=== PATIENT | female | born 1955 | race Caucasian/White ===

== ENCOUNTER 2020-10-23 07:09 | Observation (INO) ==
--- NOTE | 2020-09-24 08:48 | PAT Medication Instructions ---
Medication Instructions Date of Service September 24, 2020 Home Medications Klor Tabs 4 mg PO UD aspirin 81 mg PO 4XWK citalopram 10 mg PO QAM jmezipqu-bynvc-hawvl-CF borate [[employer]] 1 tab PO QAM lisinopril-hydrochlorothiazide 1 tab PO QAM nbqsbnfy-ays-eume-FA-lutein [[employer]] 1 tab PO QAM omeprazole 40 mg PO QAM tramadol 50 mg PO QAM Continue as directed aspirin 81 mg PO 4XWK (unless surgeon directs otherwise) STOP taking 2 weeks before surgery bkfqmywf-lakid-esbzt-CF borate [[employer]] 1 tab PO QAM DO NOT take the morning of surgery Klor Tabs 4 mg PO UD lisinopril-hydrochlorothiazide 1 tab PO QAM oinwpnnm-cnp-htpx-FA-lutein [[employer]] 1 tab PO QAM Take morning of surgery With a small sip of water, OTHERWISE NOTHING TO EAT OR DRINK AFTER MIDNIGHT: tramadol 50 mg PO QAM (okay to take up to 4 hours prior to surgery if needed) omeprazole 40 mg PO QAM citalopram 10 mg PO QAM Other Notes If you have any questions please call us at [phone] or [phone] or [phone] or [phone]
--- NOTE | 2020-09-25 08:56 | Anesthesiology Consultation ---
Date of Service September 25, 2020 Assessment & Plan (1) Encounter for pre-operative examination: - Awaiting review of preop testing(labs, EKG, CXR). - COVID screening: Per assessment on ____: Travel screen ___, no known COVID-19 positive contacts or current COVID-19 related symptoms. Surgeon arranging preop COVID testing. Awaiting results. Chart Review Chart Review: Patient seen in Pre Admission Testing Teaching & Discussion Pre-Anesthesia Teaching/Discussion Notes: Instructed NPO after midnight before surgery,except medications with 15 cc of water. Medication instructions provided according to the PAT guidelines. History Surgery Operation Date: 10/23/20 07:15 Proposed Procedures p Right Total Knee Arthroplasty - Jr Leonard DO Height/Weight Height: 5 ft 2 in Weight: 82.554 kg Allergies Allergy/AdvReac Type Severity Reaction Status Date / Time amoxicillin AdvReac Mild SEVERE Verified 09/24/20 08:18 N/V/D clavulanic acid AdvReac Mild SEVERE Verified 09/24/20 08:18 N/V/D Medications Home Medications Medication Instructions Recorded Confirmed Last Taken Klor Tabs 4 mg PO UD 09/24/20 09/24/20 Unknown aspirin 81 mg PO 4XWK 09/24/20 09/24/20 Unknown citalopram 10 mg PO QAM 09/24/20 09/24/20 Unknown riuyaaln-twarm-jozhv-CF borate 1 tab PO QAM 09/24/20 09/24/20 Unknown [[employer]] lisinopril-hydrochlorothiazide 1 tab PO QAM 09/24/20 09/24/20 Unknown cpaobitw-nch-lidg-FA-lutein 1 tab PO QAM 09/24/20 09/24/20 Unknown [[employer]] omeprazole 40 mg PO QAM 09/24/20 09/24/20 Unknown tramadol 50 mg PO QAM 09/24/20 09/24/20 Unknown Past Medical History Medical History Anxiety and depression GERD (gastroesophageal reflux disease) History of anemia History of colon cancer SURGERY ONLY History of diverticulitis History of kidney stones Hypertension Osteoarthritis Past Family History Family History Son Family history of diabetes mellitus Past Surgical History Surgical History Family history of reaction to anesthesia MOTHER AND SISTER>NAUSEA History of ankle surgery RT ANKLE RECONSTRUCTION History of arthroscopy RT KNEE History of bladder surgery "HOLE REPAIRED" R/T COLON RESECTION History of cardiac cath 2015/NO STENTS (FAILED STRESS TEST) History of section X 1 History of colon resection X 2 (1ST FOR CANCER AND 2ND R/T DIVERTICULITIS) History of colonoscopy History of dilatation and curettage History of esophagogastroduodenoscopy (EGD) History of herniorrhaphy UMBILICAL History of lithotripsy History of tonsillectomy and adenoidectomy Nausea and vomiting after administration of anesthetic agent Social History Smoking Status: Never smoker Hx Alcohol Use: Yes Alcohol type: beer, wine and hard liquor alcohol intake frequency: a few times a month substance use type: does not use Review of Systems Patient denies chest pain, shortness of breath, dyspnea on exertion, fever, chills, cough, wheezing, palpitations. Physical Exam Vital Signs VITALS BP P TEMP SP02 RESP PHYSICAL Full cervical extension range of motion. Full TMJ range of motion. TMD __ finger breaths Mallampati Score ___ Dentition: intact Lungs: clear throughout to auscultation Cardiac: regular rate and rhythm, no murmurs noted Spine: normal Carotid arteries: negative bruit Extremities: no edema
--- NOTE | 2020-09-25 09:44 | Anesthesiology Consultation ---
Date of Service September 25, 2020 Assessment & Plan (1) Encounter for pre-operative examination: COVID Status: As of 09/25 assessment, patient denies travel to endemic area, known exposure/sick contacts, or symptoms of COVID19. Patient advised to adhere to social distancing guidelines, wear a mask in public and avoid large crowds or unnecessary travel in the 2 weeks leading up to surgery. Preoperative COVID19 testing to be completed prior to surgery per surgeon's arrangements. [facility] ient encouraged to be extra cautious/conscientious with COVID precautions between COVID testing and surgery. Patient had abnormal EKG showing inferior infarct. Subsequently received EKG she had done 04/08/20, which was done pre-op prior to her hemicolectomy. Patient was seen for cardiology clearance in [place] prior to hemicolectomy per her report due to the PVCs on this EKG. She was cleared for surgery, and surgical course was (per her report) uneventful. Comparing EKG from 09/25 done in [facility], inferior leads appear very similar. Patient denies any exertional CP or SMITH. Heart cath 2012 essentially normal. Will obtain cardiology note from 04/2020 for clarity. Patient is also seeing PCP prior to surgery. Chart Review Chart Review: Acceptable Risk for Surgery (pending pcp clearance 10/09) and Patient seen in Pre Admission Testing Teaching & Discussion Instructed NPO after midnight before surgery, except medications with 15 cc of water. Medication instructions provided according to the [facility] guidelines. History Surgery Operation Date: 10/23/20 07:15 Proposed Procedures p Right Total Knee Arthroplasty - Jr Leonard DO Height/Weight Height: 5 ft 2 in Weight: 83.9 kg Allergies Allergy/AdvReac Type Severity Reaction Status Date / Time amoxicillin AdvReac Mild SEVERE Verified 09/24/20 08:18 N/V/D clavulanic acid AdvReac Mild SEVERE Verified 09/24/20 08:18 N/V/D Medications Home Medications Medication Instructions Recorded Confirmed Last Taken Klor Tabs 4 mg PO UD 09/24/20 09/24/20 Unknown aspirin 81 mg PO 4XWK 09/24/20 09/24/20 Unknown citalopram 10 mg PO QAM 09/24/20 09/24/20 Unknown xxqdsciv-ssigz-gcwly-CF borate 1 tab PO QAM 09/24/20 09/24/20 Unknown [[facility] [facility]] lisinopril-hydrochlorothiazide 1 tab PO QAM 09/24/20 09/24/20 Unknown omegbwsm-ltb-hdll-FA-lutein 1 tab PO QAM 09/24/20 09/24/20 Unknown [[employer]] omeprazole 40 mg PO QAM 09/24/20 09/24/20 Unknown tramadol 50 mg PO QAM 09/24/20 09/24/20 Unknown Past Medical History Medical History Anxiety and depression GERD (gastroesophageal reflux disease) History of anemia History of colon cancer SURGERY ONLY History of diverticulitis History of kidney stones Hypertension Osteoarthritis Exercise / Class Metabolic Activity II 4-5 Yardwork/Stairs/Walk up hill Past Family History Family History Son Family history of diabetes mellitus Past Surgical History Surgical History Family history of reaction to anesthesia MOTHER AND SISTER>NAUSEA History of ankle surgery RT ANKLE RECONSTRUCTION History of arthroscopy RT KNEE History of bladder surgery "HOLE REPAIRED" R/T COLON RESECTION History of cardiac cath 2011 for abnormal stress test. Angiographically normal coronaries, no intervention, false + stress test (report scanned into historical documents in [email or web address]). History of section X 1 History of colon resection X 2 (1ST FOR CANCER AND 2ND R/T DIVERTICULITIS) History of colonoscopy History of dilatation and curettage History of esophagogastroduodenoscopy (EGD) History of herniorrhaphy UMBILICAL History of lithotripsy History of tonsillectomy and adenoidectomy Nausea and vomiting after administration of anesthetic agent Past Anesthesia History No Hx of Anesthesia Complications and No Family Hx of Anesthesia Complications (other than nausea, slow to wake) History of PONV No Hx of Motion Sickness and History of PONV (severe) Social History Smoking Status: Never smoker Do You Dip or Chew Tobacco: No Hx Alcohol Use: Yes Alcohol type: beer, wine and hard liquor alcohol intake frequency: a few times a month substance use type: does not use Review of Systems Pt denies any recent chest pain, shortness of breath, palpitations, cough, fever, URI, or uncontrolled acid reflux. Physical Exam Vital Signs BP: 128/78 P: 76bpm SPO2: 97% RA T: 98.7 F R: 16 ENMT Mouth: + dental restorations (crown lower R molar) and + chipped teeth (cracked upper R molar); no loose teeth Thyromental Distance: > or= 3.5 Finger Breadths Mallampati Class: II Neck normal visual inspection; neck extension not limited Respiratory normal respiratory effort, lungs clear to auscultation Cardiovascular RRR, no murmur, no edema Musculoskeletal Significant valgus deformity of RLE. Lab Results Anesthesia Preop Results Results Anesthesia Widget: WBC 9.70 K/uL (4.8-10.8) 09/25/20 Hgb 14.6 g/dL (12.0-16.0) 09/25/20 Hct 42.8 % (37-47) 09/25/20 Plt 150 K/uL (130-400) 09/25/20 Na 140 mmol/L (136-145) 09/25/20 K 3.8 mmol/L (3.5-5.1) 09/25/20 Cl 106 mmol/L (98-107) 09/25/20 CO2 30 mmol/L (21-32) 09/25/20 BUN 19 mg/dl (7-18) H 09/25/20 Creat 0.59 mg/dl (0.6-1.2) L 09/25/20 Glucose Level 107 mg/dl (70-99) H 09/25/20 PT 10.1 Seconds (9.0-12.0) 09/25/20 PTT 24.2 Seconds (21.0-31.0) 09/25/20 INR 1.0 (0.9-1.1) 09/25/20 HA1c 5.5 % (4.5-5.6) 09/25/20 Urine Color Dark Yellow 09/25/20 Urine Appearance Clear (Clear) 09/25/20 Urine pH 8.0 (4.5-7.5) H 09/25/20 Urine Specific [place] 1.023 (1.000-1.030) 09/25/20 Urine Protein Negative (Negative) 09/25/20 Urine Glucose (UA) Negative (Negative) 09/25/20 Urine Ketones Negative (Negative) 09/25/20 Urine Blood Negative (Negative) 09/25/20 Urine Nitrite Negative (Negative) 09/25/20 Urine Bilirubin Negative (Negative) 09/25/20 Urine Urobilinogen Negative (Negative) 09/25/20 Urine Leukocyte Esterase Negative (Negative) 09/25/20 Blood Type B Negative 09/25/20 Antibody Screen NEGATIVE 09/25/20 Testing Electrocardiogram Date: 09/25/20 Findings: + NSR @ (73bpm) Left axis deviation. No change from 2014. Chest X-Ray Date: 09/25/20 IMPRESSION: 1. No evidence of acute parenchymal consolidation 2. Mild mediastinal prominence likely secondary to aortic tortuosity/ectasia
--- NOTE | 2020-10-21 16:53 | History & Physical Report ---
Date of Service October 21, 2020 Assessment & Plan (1) Osteoarthritis of right knee: Plan: Schedule a right total knee arthroplasty for 10/23/20. All potential risks, benefits, complications, alternatives, and rehab have been discussed with the patient and she wishes to proceed. Plan for aspirin 81 mg twice daily x30 days postop for DVT prophylaxis. History of Present Illness Chief Complaint: Right knee pain Primary Care Provider: John Ramos MD This is a patient with a multiyear history of right knee pain that was treated conservatively for osteoarthritis. She is failed all conservative management for right knee osteoarthritis. She is currently being set up for total knee arthroplasty for the right knee. Allergies Allergy/AdvReac Type Severity Reaction Status Date / Time amoxicillin AdvReac Mild SEVERE Verified 09/24/20 08:18 N/V/D clavulanic acid AdvReac Mild SEVERE Verified 09/24/20 08:18 N/V/D Home Medications Medication Instructions Recorded Confirmed Type Klor Tabs 4 mg PO UD 09/24/20 09/24/20 History aspirin 81 mg tablet 81 mg PO 4XWK 09/24/20 09/24/20 History citalopram 10 mg tablet 10 mg PO QAM 09/24/20 09/24/20 History glucosam 750 mg-chondroi 100 1 tab PO QAM 09/24/20 09/24/20 History mg-hyalur 1.65 mg-CF borate 108 mg tablet ([facility]) lisinopril 20 1 tab PO QAM 09/24/20 09/24/20 History mg-hydrochlorothiazide 25 mg tablet multivit with 1 tab PO QAM 09/24/20 09/24/20 History umnoptil-fduw-XZ-lutein 8 mg iron-400 mcg-[facility]cg [facility] omeprazole 40 mg capsule,delayed 40 mg PO QAM 09/24/20 09/24/20 History release tramadol 50 mg tablet 50 mg PO QAM 09/24/20 09/24/20 History Past Med/Surg History Medical History Anxiety and depression GERD (gastroesophageal reflux disease) History of anemia History of colon cancer SURGERY ONLY History of diverticulitis History of kidney stones Hypertension Osteoarthritis Surgical History Family history of reaction to anesthesia MOTHER AND SISTER>NAUSEA History of ankle surgery RT ANKLE RECONSTRUCTION History of arthroscopy RT KNEE History of bladder surgery "HOLE REPAIRED" R/T COLON RESECTION History of cardiac cath 2011 for abnormal stress test. Angiographically normal coronaries, no intervention, false + stress test (report scanned into historical documents in [employer]). History of section X 1 History of colon resection X 2 (1ST FOR CANCER AND 2ND R/T DIVERTICULITIS) History of colonoscopy History of dilatation and curettage History of esophagogastroduodenoscopy (EGD) History of herniorrhaphy UMBILICAL History of lithotripsy History of tonsillectomy and adenoidectomy Nausea and vomiting after administration of anesthetic agent Family History Son Family history of diabetes mellitus Social History Smoking Status: Never smoker Second Hand Exposure: Yes ( A CHILD); Hx Alcohol Use: Yes Alcohol type: beer, wine and hard liquor Preferred Language: Sami Property Management Specialist Required: No Beliefs That Will Affect Care: None Current Living Situation: Alone Feels Safe at Home: Yes Assistive Devices: Glasses Physical Exam Constitutional: well developed and well nourished; no acute distress ENMT: external ear and nose normal, oropharynx normal Neck: trachea midline, no thyromegaly Respiratory: normal respiratory effort, lungs clear to auscultation Cardiovascular: Rate/Rhythm: regular rate and regular rhythm Gastrointestinal (Abdomen): normal bowel sounds, soft, nontender, no hepatospl enomegaly Musculoskeletal: Knee: + knee ROM with crepitation (Right knee), + joint line tenderness (Right medial and lateral joint lines) and + Derrick's sign positive (Right); no skin erythema and no ecchymosis Skin: no rashes, warm and dry Trauma: no evidence of skin trauma Neurologic: normal touch/pain/proprioception Psychiatric: A+Ox3, euthymic affect Speech: normal rate/rhythm/volume of speech Lymphatic: no cervical or axillary lymphadenopathy
[~2020-10-23 07:09] MED LIST: ACETAMINOPHEN 500 MG TAB PO SCH; BUPIVACAINE 0.5 % 5 MG/1 ML PF 10ML VIAL ONE; CLINDAMYCIN 600 MG/54 ML BAG IV SCH; CeleBREX 200 MG CAP PO SCH; FAMOTIDINE 20 MG TAB PO SCH; GABAPENTIN 300 MG CAP PO SCH; LR 500ML BOLUS, THEN 15ML/HR IV SCH; METOCLOPRAMIDE HCL 10 MG TABLET PO SCH; ROPIVACAINE 0.5% 5 MG/ML 30 ML VIAL ONE; ROPIVACAINE 0.5% HCL/PF 150 MG, BUPIVACAINE 0.75% MPF 20 ML, EPINEPHrine 30MG/30ML (OR ... INSTIL SCH; Scopolamine 1 MG TDSY TD SCH; TRANEXAMIC ACID 1,000 MG **IV Intra-op IV SCH; TRANEXAMIC ACID 1,000 MG **IV Pre-op IV SCH; dexAMETHasone 4 MG TAB PO SCH
--- NOTE | 2020-10-23 07:28 | History & Physical Bridge Note ---
Date of Service October 23, 2020 History & Physical Bridge Note I have examined the patient, reviewed the History & Physical and in the interval since the performance of the History & Physical I have noted the following changes of clinical significance: no changes noted
[2020-10-23] MEDS ORDERED: LIDOCAINE 2% 2 ML VIAL/AMP(20MG/ML) INFIL ONE (08:20)
[2020-10-23] MEDS ORDERED: PROPOFOL IV EMULSION 10 MG/ML 20 ML VIAL IV ONE (08:20)
[2020-10-23] MEDS ORDERED: MIDAZOLAM HCL 1 MG/ML 2ML VIAL ONE (08:21)
[2020-10-23] MEDS ORDERED: ePHEDrine sulfate 50 MG/ML AMP IV PRN (08:29)
[2020-10-23] MEDS ORDERED: PROMETHAZINE HCL 6.25 MG in SODIUM CHLORIDE 0.9% 50 ML IV PRN (08:29)
[2020-10-23] MEDS ORDERED: ATROPINE SULFATE 0.1 MG/ML 10ML SYR IV PRN (08:29)
[2020-10-23] MEDS ORDERED: ONDANSETRON INJ 2 MG/ML 2 ML VIAL IV PRN ×2 (08:29→13:30)
[2020-10-23] MEDS ORDERED: HYDROmorphone INJ 1 MG/ML SYRINGE IV PRN (08:29)
[2020-10-23] MEDS ORDERED: ORTHO JOINT ANESTHETIC ONE (08:48)
--- NOTE | 2020-10-23 11:27 | Post Operative Brief Note ---
Immediate Post Op Note v1 Date of Surgery October 23, 2020 Pre & Post Diagnosis Operation Date: 10/23/20 08:45 Pre-Op Diagnosis: Unilateral Primary Osteoarthritis right knee, Right Knee severe genu valgum, flexion contracture, leg length discrepancy Post-Op Diagnosis: Unilateral Primary Osteoarthritis right knee, Right Knee severe genu valgum, flexion contracture, leg length discrepancy I identified the patient and participated in the time-out.: Yes Procedure Operation Date: 10/23/20 08:45 Actual Procedures p Right Total Knee Arthroplasty, lateral release right knee (Right) - Jr Leonard DO Surgeon Jr Leonard DO Shade Classifier Timothy Ortega PA-C Estimated Blood Loss 20 Findings Consistent with Post-Op Diagnosis Specimens Bone and tissue right knee Drains Hemovac Drain Anesthesia Type MAC Spinal Regional Complications none Disposition Accompanied Patient To Recovery: No Overlapping Procedure I was present for: the critical portions of procedure. I was immediately available: during the entire case.
[2020-10-23] MEDS ORDERED: ONDANSETRON INJ 2 MG/ML 2 ML VIAL ONE (11:50)
--- NOTE | 2020-10-23 11:51 | Operative Report (OR) ---
DATE OF PROCEDURE: 10/23/2020 PREOPERATIVE DIAGNOSES: 1. Right knee osteoarthritis. 2. Severe genu valgum. 3. Flexion contracture, right knee. 4. Leg length discrepancy, right leg. POSTOPERATIVE DIAGNOSES: 1. Right knee osteoarthritis. 2. Severe genu valgum. 3. Flexion contracture, right knee. 4. Leg length discrepancy, right leg. PROCEDURE: Right total knee arthroplasty using a [employer]hew MRI matched femur size 4, tibia size 3 with 10 mm x 70 mm stem, patellar 32 mm round, polyethylene 3/4 x 18 mm constrained and lateral retinacular release. SURGEON: Jr Leonard DO. C APPLICATION DEVELOPER: Timothy Ortega PA-C who was present for patient positioning, sterile prep and drape, management of retractors and instruments. He was present through the critical portions of the case including wound closure, application of sterile dressing and transport of the patient to recovery. ANESTHESIA: Spinal MAC, regional. SPECIMENS: Bone and tissue, right knee. DRAINS: Hemovac x2. COMPLICATIONS: None. ESTIMATED BLOOD LOSS: 20 mL. PERTINENT HISTORY: This is a 64-year-old woman who has had ongoing pain, deformity and limitation in ambulation due to right knee pain for the last 3-5 years. She has had a worsening severe valgus deformity, which has worsened over the last several years with advancing osteoarthritis. She attempted and failed conservative management including use of a brace, use of assistive device, anti- inflammatories, rest, steroid injections, physician-directed home exercises, both topical and oral anti-inflammatories, modification of activities and rest. Radiographs demonstrated severe 23-degree valgus angle of the right knee with severe complete loss of joint space laterally with marginal osteophytes, subchondral sclerosis, and subchondral cyst formation. The patient is scheduled for surgery as indicated. DESCRIPTION OF PROCEDURE: The patient was taken to the Operating Suite and placed supine on the Operating Room table after the patient had been administered spinal epidural anesthetic and femoral nerve sheath catheter in the preop holding area. The patient was sedated. Proper operative site was identified. The tourniquet was placed high on the right lower extremity. Right lower extremity was then sterilely prepped and draped in the usual fashion. Elevated and exsanguinated with an Esmarch bandage. Tourniquet inflated to 350 mmHg. Next a midline 10-blade scalpel incision was made directly over the middle one-third of the patella extending to the level of the tibial tubercle. The incision was deepened through the subcutaneous tissue and meticulous hemostasis with electrocautery. Full-thickness skin flaps were developed taking care to avoid neurovascular bundles. Next, median parapatellar capsular incision was made 10-blade scalpel after the superior medial corner had been marked with a marking pen for later reapproximation. Next, patella was everted. Soft tissue releases were performed of the knee including along the anterior medial corner to the level of the MCL which was protected and released adjacent to the MCL with Mojica elevator. Fat pad was resected anteriorly and small half miller portion of tissue was resected at the superior margin of the dermal articular surface. Next, the patella thickness was measured with caliper and held in everted position with Radha. Next, sagittal saw was used to make orthogonal cuts to the level of the patellar nose. Caliper was used to remeasure the patella and the appropriate sized patellar button, in this case size 32 mm round was felt to be most appropriate. The alignment guide was then put in place. Peg holes were drilled and alignment guide was then removed. Next, the femoral cutting block was placed in the distal aspect of the femur and pinned in place. Next the distal femoral cut was made based off the patients anatomy and MRI patient matched cutting block. Next, a size 4 distal 4-in-1 cutting block was tamped in place then stabilized with pins. Next, the appropriate soft tissue retraction was made and anterior chamfer and posterior chamfer cuts were made with the sagittal saw. Next, the 4-in-1 cutting block was then removed followed by removal of all bone fragments. Next, attention was then directed toward the proximal tibia. Blunt Stephanie was placed posterior to the tibia to protract it anteriorly and median and lateral sharp Stephanie retractors were placed. Soft tissue and portion of the menisci were then resected at this time and MRI matched proximal tibial cutting block was then pinned in place and proximal tibial cut was made with sagittal saw. Alignment guide was removed. Pins were removed and the proximal fragment of the tibia was then sharply excised and removed. Next, proximal tibial tray trial size 3 with 10 mm x 70 mm stem was then pinned in place and this was felt to be well matched for the patients anatomy, pinned in place and keel punch was then utilized with hal. Keel punch was then removed and cervical laminar shot polisher and inspector was then placed in the medial compartment. The lateral compartment was then inspected for osteophytes and soft tissue impingement. There was found to be none. I then switched to the lateral compartment and medial compartment was then debrided of any soft tissue impingement. Next the laminar shot polisher and inspector was removed and the femoral trial, in this case size 4 was then malleted in place, pinned and then femoral notch milling guide was then placed anteriorly. This was then reamed and then punched with sharp punch and mallet. Multiple thickness polyethylene trials were excised from [address] up to 18 mm due to laxity of the MCL. To achieve balance in both extension and flexion, the lateral joint capsule and the iliotibial band were then fractionally lengthened using multiple puncture releases using 18-gauge spinal needle. After trialing with the 18 mm constrained polyethylene and releases as noted above, final balance fit and stability was confirmed. Next, the distal aspect of the femur was then inserted in notch guide and size 3/4 x 18 mm constrained poly was inserted, reduced. Patellar button was then placed in trial and range of motion was performed. Next after range of motion and stability test was performed the implants were found to be appropriate size. Trials were all removed. The posterior capsule was injected with Orthomix. Next the joint was then cleansed with pulsatile lavage using approximately 3 liters normal saline with Bacitracin additive. Next all bony surfaces were the suctioned and drained and standard cementing technique was performed with Palacos G and all excess cement was then removed from around the implant site. A 3/4 x 18 mm constrained posterior stabilized polyethylene bearing was implanted and checked for stability. The patellar button was then cemented in place and held in place with patellar clamp. Next, double lumen 10 [place] Hemovac drain was then placed and exiting anterolaterally and the capsule was closed using interrupted #1 Vicryl sutures. The dermis was closed using buried interrupted 2-0 Vicryl and the skin closed with skin gabriel. A sterile compressive dressing was applied from the toes to the groin and overwrapped with Riki wrap. Tourniquet was released. The patient was awakened and taken to recovery in stable condition. Job ID: [id number] [facility]
--- NOTE | 2020-10-23 12:33 | XRay Report ---
XR knee RT 1 or 2V routine CLINICAL HISTORY: Postoperative evaluation. COMPARISON: None FINDINGS: Alignment of the total right knee arthroplasty is anatomic. There is no periprosthetic fra cture. There is no unexpected radiopaque foreign body. There are drains and skin gabriel. IMPRESSION: Expected findings following total right knee arthroplasty. ACT 112: Negative or not required by law. Electronically signed by: Solis Domínguez M.D. 10/23/2020 12:32 PM
[2020-10-23] MEDS: SODIUM CHLORIDE 0.9% 1000ML 1,000 ML IV SCH ×2 (13:10→23:10)
--- NOTE | 2020-10-23 13:15 | Anesthesiology Progress Note ---
Date of Service October 23, 2020 Anesthesia Post Procedure Vital Signs Vital Signs: Temp Pulse Pulse Resp BP BP Pulse Ox 10/23/20 13:00 82 14 115/76 96 10/23/20 12:50 36.7 C 79 20 100/63 96 10/23/20 12:40 80 15 102/61 98 10/23/20 12:30 36.7 C 82 14 123/69 94 10/23/20 12:20 84 14 113/62 98 10/23/20 12:10 82 12 114/66 98 10/23/20 12:00 36.6 C 86 14 113/57 L 98 10/23/20 07:34 37 C 83 18 136/77 99 Pain Intensity Right Knee: Pain Intensity: 8 Transfer of Care Handoff Completed per policy Notes Mental Status: alert / awake / arousable Patient Amnestic to Procedure: Yes Nausea / Vomiting: adequately controlled Pain: adequately controlled Airway Patency, RR, SpO2: stable & adequate BP & HR: stable & adequate Hydration State: stable & adequate Neuraxial Anesthesia: was administered and sensory block is resolving Anesthetic Complications: no major complications apparent
[2020-10-23] MEDS ORDERED: ALUMINUM/MAGNESIUM SUSP 30 ML UDC PO PRN (13:30)
[2020-10-23] MEDS ORDERED: KLOR PO SCH (13:30)
[2020-10-23] MEDS ORDERED: ceFAZolin 2000MG 2,000 MG/15 ML SYR IV SCH (13:30)
[2020-10-23] MEDS ORDERED: NALOXONE HCL 0.4 MG/1 ML VIAL/CARP IV PRN (13:30)
[2020-10-23] MEDS ORDERED: bisacodyL 10 MG SUPP PR PRN (13:30)
[2020-10-23] MEDS ORDERED: METOCLOPRAMIDE HCL INJ 5 MG/ML 2 ML VIAL IV PRN (13:30)
[2020-10-23] MEDS ORDERED: MAGNESIUM HYDROXIDE SUSP 30 ML UDC PO PRN (13:30)
[2020-10-23] MEDS ORDERED: oxyCODONE HCL IR 5 MG TAB (IMMEDIATE RELEASE) PO PRN (13:30)
[2020-10-23] MEDS ORDERED: HYDROmorphone INJ 0.5 MG/0.5 ML SYR IV PRN (13:30)
[2020-10-23] MEDS ORDERED: diphenhydrAMINE Capsule 25 MG CAP PO PRN (13:30)
[2020-10-23] MEDS: Scopolamine CHECK PATCH PLACEMENT SCH ×2 (15:33→23:09)
[2020-10-23] MEDS: ACETAMINOPHEN 500 MG TAB PO SCH ×2 (15:33→21:34)
[2020-10-23] MEDS: CLINDAMYCIN 600 MG in DEXTROSE 5% 50 ML IV SCH ×2 (16:58→23:09)
[2020-10-23] MEDS ORDERED: TRANEXAMIC ACID / 0.7% NACL 1,000 MG/100 ML BAG IV SCH (18:15)
[2020-10-23] MEDS: KETOROLAC TROMETHAMINE 15 MG/ML VIAL IV PRN (19:47)
[2020-10-23] MEDS ORDERED: SENNA 8.6 MG TAB PO SCH (21:00)
[2020-10-23] MEDS: ASPIRIN 81 MG ECTAB PO SCH (21:31)
[2020-10-23] MEDS: DOCUSATE SODIUM 100 MG CAP PO SCH (21:32)
[2020-10-23] MEDS: CeleBREX 200 MG CAP PO SCH (21:32)
[2020-10-23 22:27] VITALS: O2SAT 98
[2020-10-24] MEDS ORDERED: CLINDAMYCIN 600 MG in DEXTROSE 5% 50 ML IV SCH
[2020-10-24] MEDS: ACETAMINOPHEN 500 MG TAB PO SCH ×2 (05:53→15:28)
[2020-10-24 08:13] VITALS: BP 145/73; PULSE 65; TEMP 98.2
[2020-10-24] MEDS: KETOROLAC TROMETHAMINE 15 MG/ML VIAL IV PRN (08:26)
[2020-10-24] MEDS: CeleBREX 200 MG CAP PO SCH (08:27)
[2020-10-24] MEDS: ASPIRIN 81 MG ECTAB PO SCH (08:27)
[2020-10-24] MEDS: DOCUSATE SODIUM 100 MG CAP PO SCH (08:27)
[2020-10-24] MEDS: Scopolamine CHECK PATCH PLACEMENT SCH (08:28)
[2020-10-24] MEDS ORDERED: CEROVITE ADV FORMULA TAB PO SCH (09:00)
[2020-10-24] MEDS ORDERED: LISINOPRIL/HCTZ 20/25MG 1 TAB PO SCH (09:00)
[2020-10-24] MEDS ORDERED: MULTIVITAMIN TAB PO SCH (09:00)
[2020-10-24] MEDS ORDERED: NON-FORMULARY MEDICATION (Glucosam-Chond-Hyalu-Cf Borate [Move Free Joint Health] 750 mg-1 PO SCH (09:00)
[2020-10-24] MEDS ORDERED: CITALOPRAM 20 MG TAB PO SCH (09:00)
[2020-10-24] MEDS ORDERED: PANTOprazole 40 MG TAB PO SCH (09:00)
--- NOTE | 2020-10-24 09:28 | Orthopedic Progress Note ---
Date of Service October 24, 2020 Assessment & Plan (1) Osteoarthritis of right knee: Plan: Postop day 1 status post right total knee arthroplasty. PT/OT protocols. Weightbearing as tolerated. DVT prophylaxis-aspirin p.o. twice daily, SCDs, SARA raymundo. Pain management as written. Labs pending. DC planning-patient is planning for home health services upon discharge. Admission and Anticipated Discharge Date Admission Date: October 23, 2020 Subjective Postop day 1 Patient currently sitting up in her chair at the bedside. No complaints this morning pain is controlled. She has some mild discomfort in the back of the knee but otherwise she feels fine. Denies shortness of breath, chest pain, lightheadedness. Physical Exam Physical Exam: Dressings are clean, dry, and intact. Calves are soft nontender. Neurovascular is intact. Toes are mobile. She has good dorsiflexion and plantarflexion of the right foot. Hemovac drainage was 150 mL from the previous shift. Results & Data ([facility]) Vital Signs (Past 12 Hours) Vital Signs Temp Pulse Resp BP Pulse Ox 10/24/20 08:12 36.8 C 65 16 145/73 H 98 10/24/20 02:30 36.6 C 61 15 114/67 98 10/23/20 22:24 36.8 C 62 15 97/60 L 98
[2020-10-24 11:15] LABS: Hematocrit (blood only) 33.8 % (37-47); Hemoglobin 11.4 g/dL (12.0-16.0); Mean Corpuscular Hemoglobin 30.2 pg (25-34); Mean Corpuscular Hgb Conc 33.7 g/dL (32-36); Mean Corpuscular Volume 89.7 fL (80-100); Mean Platelet Volume 11.5 fL (7.4-10.4); Platelet Count 128 K/uL (130-400); RDW Coefficient of Variation 14.1 % (11.5-14.5); RDW Standard Deviation 46.2 fL (36.4-46.3); Red Blood Count 3.77 M/uL (4.2-5.4); White Blood Count 10.93 K/uL (4.8-10.8)
[2020-10-24 11:32] LABS: BUN Creatinine Ratio 24.6 (10-20); Calcium 8.9 mg/dl (8.5-10.1); Creatinine Clr Calc Pharmacy 77.6 ml/min; Est GFR (African American) 102.9 ml/min; Est GFR (Non-African American) 88.8 ml/min; Potassium 3.5 mmol/L (3.5-5.1)
--- NOTE | 2020-10-29 16:16 | Discharge Summary ---
Date of Service October 29, 2020 Admission HPI Per Admitting Provider This is a patient with a multiyear history of right knee pain that was treated conservatively for osteoarthritis. She is failed all conservative management for right knee osteoarthritis. She is currently being set up for total knee arthroplasty for the right knee. Principal Diagnosis right knee osteoarthritis Discharge Exam Constitutional well developed and well nourished; no acute distress ENMT external ear and nose normal, oropharynx normal Neck trachea midline, no thyromegaly Respiratory normal respiratory effort, lungs clear to auscultation Cardiovascular Rate/Rhythm: regular rate and regular rhythm Gastrointestinal (Abdomen) normal bowel sounds, soft, nontender, no hepatosplenomegaly Musculoskeletal Knee: + surgical incision (Right knee: silverlon in place); no skin erythema, no ecchymosis and no crepitation with knee ROM (Right knee) Skin no rashes, warm and dry Trauma: no evidence of skin trauma Neurologic normal touch/pain/proprioception Psychiatric A+Ox3, euthymic affect Speech: normal rate/rhythm/volume of speech Lymphatic no cervical or axillary lymphadenopathy Discharge Data Allergies Allergy/AdvReac Type Severity Reaction Status Date / Time amoxicillin AdvReac Mild SEVERE Verified 10/23/20 07:40 N/V/D clavulanic acid AdvReac Mild SEVERE Verified 10/23/20 07:40 N/V/D Procedures Performed Operation Date: 10/23/20 08:45 Actual Procedures p Right Total Knee Arthroplasty(Right) - Jr Leonard DO Ordered Studies 10/23/20 05:00 US - OR guided needle placemen Routine Hospital Course (1) Osteoarthritis of right knee: Postop day 1 status post right total knee arthroplasty. PT/OT protocols. Weightbearing as tolerated. DVT prophylaxis-aspirin p.o. twice daily, SCDs, SARA raymundo. Pain management as written. Labs pending. DC planning-patient is planning for home health services upon discharge. Total Time Total Time Spent Total Time Spent (In Minutes): 20 Discharge Plan Discharge Items Patient Disposition: Home - Home Health Services Reason For Visit: Unilateral Primary Ostearthritis, Right Knee Discharge Diagnosis: Right knee osteoarthritis Activity: Per Instructions section Weightbearing: Right weightbearing Weightbearing Comment: as tolerated with walker Non-emergency contact: Surgeon Call non-emergency contact if: your pain is not controlled, your pain is worsening and your temperature is above 101 Follow-up/Referrals: John Ramos MD [Primary Care Provider] - Diet: Regular Addtl Attending Provider Instructions: ACTIVITY RECOMMENDATIONS: SELF CARE INSTRUCTIONS AFTER TOTAL KNEE REPLACEMENT A. You may need to continue a physical therapy program after discharge from the hospital. There are several options available to you. Your doctor will assist you in selecting the best one for you. 1. An out-patient facility 2 to 3 times a week for therapy or home therapy. 2. Continue working on all exercises taught to you in the hospital. Your goals should be to increase bending of your knee to 90 degrees and beyond and to fully straighten your knee. B. You may progress at your own pace from walking with a walker or crutches to a cane; then to no assistive devices. C. Make walking a part of your daily routine. Be up as much as comfortable with rest periods throughout the day. Rest with leg elevation is very important. Use the ice wrap frequently for the first 3-4 weeks. D. There are no restrictions on activities. You may ride in a car, shop, participate in hydraulic specialist and all social activities. E. Wear the long elastic stockings (SARA hose) 20 hours a day for one month after surgery. They can be removed several times a day for laundering and for a bath. F. Silverlon: You have a Silverlon dressing on the right knee incision. It will remain in place for 7 days from the day of your surgery. After 7 days, you may remove the dressing, just as you would remove a bandaid. You may shower with the Silverlon dressing in place. However, if you notice any water within the dressing, the dressing should be removed. You may cover the incision with a dry dressing once the silverlon is removed if there is any drainage. SPECIAL CARE INSTRUCTIONS: VERY IMPORTANT TO READ AND REVIEW A. Take Aspirin (blood thinning medications) as directed by your doctor. If on Coumadin, have a pro-time (blood test) drawn according to your doctor's instructions. This will tell the doctor how well the Coumadin is thinning your blood. B. There are a few signs you need to watch for after you are home. Call [facility] if you notice any of the followin. Increased severe knee pain. Some pain is expected especially when you exercise. 2. Increased swelling in your leg or knee; pain or swelling of the calf muscle in either lower leg. 3. Any fluid drainage from the incision. 4. Shortness of breath or chest pain. C. Please call [facility] at if you have any concerns or questions about your operation or recovery. The doctor or his nurse will return your call promptly. D. You must take antibiotics before dental work, bladder, bowel or other surgery. Your doctor will provide you with a permanent care to carry describing this precaution. * CALL IF INCREASED PAIN, REDNESS, DRAINAGE OR FEVER GREATER THAT 101 F. * WEAR SARA HOSE 20 HOURS PER DAY FOR 4 WEEKS. FOLLOW UP VISIT: If appointment is not already scheduled: Please call [facility] to make a follow-up appointment for 2 weeks after your surgery to have gabriel removed at . Pending Studies at Discharge: No Stand-Alone Forms: My [facility] Medications and DC Order Prescriptions: New acetaminophen [Tylenol Extra Strength] 500 mg Tablet 1,000 mg PO Q8 14 Days Qty: 84 RF: 0 aspirin 81 mg Tablet,Delayed Release (Dr/Ec) 81 mg PO BID 30 Days Qty: 60 RF: 0 celecoxib [Celebrex] 200 mg Capsule 200 mg PO BID 14 Days Qty: 28 RF: 0 oxycodone 5 mg Tablet 5 mg PO Q4H MDD 6 PRN (Reason: pain) Qty: 30 RF: 0 Continued citalopram 10 mg Tablet 10 mg PO QAM RF: 0 omeprazole 40 mg Capsule,Delayed Release(Dr/Ec) 40 mg PO QAM RF: 0 lisinopril-hydrochlorothiazide 20-25 mg Tablet 1 tab PO QAM RF: 0 Centrum Silver Women 8 mg iron-400 mcg-300 mcg Tablet 1 tab PO QAM RF: 0 Move Free [facility] Health 750 mg-100 mg- 1.65 mg-108 mg Tablet 1 tab PO QAM RF: 0 Klor Tabs 4 mg PO UD RF: 0 Discontinued tramadol 50 mg Tablet 50 mg PO QAM RF: 0 aspirin 81 mg Tablet 81 mg PO [id number] RF: 0 Discharge Orders: Discharge Order (Routine); Ordered 10/24/20 Ordered By: Jr Jamison/Other Patient Handouts: Total Knee Replacement, Understanding Knee Replacement, Understanding Minimally Invasive ... Admission Data Admit Date/Time: 10/23/20 12:04 Attending Provider: Jr Leonard Admit Provider: Jr Leonard Primary Care Provider: John Ramos Other Interventions: Discharge Summary Assessment (RN) Last Done: 10/24/20 14:07
== END 2020-10-24 16:14 | disposition home health service (06) ==
LOC: 3E 07:09 → ASU 07:09